=== PATIENT | female | born 2000 | race Caucasian/White ===

== ENCOUNTER 2023-02-07 21:54 | Emergency (ER) | payer BC ==
[~2023-02-07] VITALS: Ht 162.6 cm; Wt 49.9 kg
--- NOTE | 2023-02-07 22:18 | NUR ---
LIST OF RESOURCES/CLINICS GIVEN, PATIENT VERBALIZED UNDERSTANDING.
[2023-02-07 22:19] VITALS: BP 138/91
--- NOTE | 2023-02-07 22:19 | NUR ---
Patient discharged to home in stable condition. Written and verbal after care instructions given. Patient verbalizes understanding of instruction.
== END 2023-02-07 22:20 | disposition home or self-care (01) ==
LOC: ER 21:58
DX: F43.10 Post-traumatic stress disorder, unspecified (principal); F41.9 Anxiety disorder, unspecified; F32.A Depression, unspecified; F41.0 Panic disorder [episodic paroxysmal anxiety]; X58.XXXA Exposure to other specified factors, initial encounter; Y93.89 Activity, other specified; Y92.89 Other specified places as the place of occurrence of the external cause; Y99.8 Other external cause status